=== PATIENT | male | born 1965 | race Two or more races ===

== ENCOUNTER 2020-08-27 16:38 | Emergency (ER) | payer OTHER ==
[~2020-08-27] VITALS: Ht 160 cm; Wt 104.3 kg
[2020-08-27 16:49] VITALS: BP 120/77
[2020-08-27] MEDS ORDERED: LIDOCAINE 1%-EPI 1:100,000 20 ML VIAL ONE (17:13)
[2020-08-27] MEDS ORDERED: TDAP [DIPH/PERTUSSIS/TET] 0.5 ML VIAL IM ONE ×2 (17:26→17:30)
[2020-08-27] MEDS ORDERED: IBUP-1955 PO (18:03)
[2020-08-27] MEDS ORDERED: CEPH500C2 PO (18:03)
--- NOTE | 2020-08-27 18:07 | NUR ---
Patient discharged to home in stable condition. Written and verbal after care instructions given. Patient verbalizes understanding of instruction.
== END 2020-08-27 18:07 | disposition home or self-care (01) ==
LOC: ER 16:45
DX: S81.811A Laceration without foreign body, right lower leg, initial encounter (principal); I25.2 Old myocardial infarction; Z79.899 Other long term (current) drug therapy; W26.8XXA Contact with other sharp object(s), not elsewhere classified, initial encounter; Y93.89 Activity, other specified; Y92.89 Other specified places as the place of occurrence of the external cause; Y99.8 Other external cause status
CPT/HCPCS: 12004; 90471; 90715; 99283; A6403; J3490

== ENCOUNTER 2020-09-06 14:40 | Emergency (ER) | payer OTHER ==
[~2020-09-06] VITALS: Ht 167.6 cm; Wt 152.0 kg
[~2020-09-06 14:40] MED LIST: CEPH500C2 PO; IBUP-1955 PO
[2020-09-06 15:09] VITALS: BP 131/81
[2020-09-06] MEDS ORDERED: SULF1TAB48 PO (16:51)
== END 2020-09-06 16:52 | disposition home or self-care (01) ==
LOC: ER 15:29
DX: T81.49XA Infection following a procedure, other surgical site, initial encounter (principal); S81.811D Laceration without foreign body, right lower leg, subsequent encounter; I25.2 Old myocardial infarction; Z95.5 Presence of coronary angioplasty implant and graft; Z79.899 Other long term (current) drug therapy; X58.XXXD Exposure to other specified factors, subsequent encounter

== ENCOUNTER 2020-09-07 14:39 | Emergency (ER) | payer OTHER ==
[~2020-09-07] VITALS: Ht 162.6 cm; Wt 99.8 kg
[~2020-09-07 14:39] MED LIST changes: +SULF1TAB48 PO
[2020-09-07] MEDS ORDERED: VANCOMYCIN 1.5 GM in IV D5W 500 ML IV ONE (15:30)
[2020-09-07 15:33] LABS: BASOPHILS # (AUTO) 0.1 /CMM (0.0-0.2); BASOPHILS % (AUTO) 0.9 % (0.0-2.0); EOSINOPHILS % (AUTO) 4.6 % (0.0-6.0); HEMATOCRIT 47 % (39-51); HEMOGLOBIN 16.1 g/dL (13.5-17.5); LYMPHOCYTES # (AUTO) 1.8 /CMM (0.8-4.8); LYMPHOCYTES % (AUTO) 27.5 % (20.0-44.0); MEAN CORPUSCULAR HGB CONC 34 g/dl (31.0-36.0); MEAN CORPUSCULAR VOLUME 89 fL (80-96); MONOCYTES # (AUTO) 0.7 /CMM (0.1-1.30); MONOCYTES % (AUTO) 10.1 % (2.0-12.0); NEUTROPHILS # (AUTO) 3.7 /CMM (1.8-8.9); NEUTROPHILS % (AUTO) 56.9 % (43.0-81.0); PLATELET COUNT (AUTO) 145 /CMM (150-450); RED BLOOD CELL COUNT(AUTO) 5.29 MIL/uL (4.5-6.0); WHITE BLOOD COUNT (AUTO) 6.5 K/uL (4.3-11.0)
[2020-09-07 15:49] LABS: CALCIUM, SERUM 8.2 mg/dL (8.5-10.1); CREATININE 0.9 mg/dL (0.6-1.3)
[2020-09-07 18:20] VITALS: BP 133/78
--- NOTE | 2020-09-07 18:22 | NUR ---
Patient discharged to home in stable condition. Written and verbal after care instructions given. Patient verbalizes understanding of instruction.IV removed. Catheter intact and site benign. Pressure and 4x4 applied to site. No bleeding noted. Pt ambulatory with a steady gait
== END 2020-09-07 18:22 | disposition home or self-care (01) ==
LOC: ER 14:40
DX: T81.49XA Infection following a procedure, other surgical site, initial encounter (principal); I25.2 Old myocardial infarction; Z79.899 Other long term (current) drug therapy
CPT/HCPCS: 36415; 80048; 85025; 96365; 96366; 99284; J3370; J7060

== ENCOUNTER 2020-09-09 12:16 | Emergency (ER) | payer OTHER ==
[~2020-09-09] VITALS: Ht 162.6 cm; Wt 99.8 kg
[2020-09-09 12:17] VITALS: BP 125/81
--- NOTE | 2020-09-09 12:35 | NUR ---
Patient discharged to home in stable condition. Written and verbal after care instructions given. Patient verbalizes understanding of instruction.
== END 2020-09-09 12:35 | disposition home or self-care (01) ==
LOC: ER 12:18
DX: T81.49XA Infection following a procedure, other surgical site, initial encounter (principal)

== ENCOUNTER 2024-02-17 10:55 | Emergency (ER) | payer OTHER ==
[~2024-02-17] VITALS: Ht 160 cm; Wt 97.5 kg
[2024-02-17 11:23] VITALS: BP 124/75; TEMP 98.3
[2024-02-17] MEDS ORDERED: IBUP-1955 PO (13:25)
[2024-02-17 13:34] VITALS: O2SAT 99
== END 2024-02-17 13:35 | disposition home or self-care (01) ==
LOC: ER 11:04
DX: S63.501A Unspecified sprain of right wrist, initial encounter (principal); Z86.79 Personal history of other diseases of the circulatory system; X50.9XXA Other and unspecified overexertion or strenuous movements or postures, initial encounter; Y93.89 Activity, other specified; Y92.89 Other specified places as the place of occurrence of the external cause; Y99.8 Other external cause status
CPT/HCPCS: 73110; 73130-TC